=== PATIENT | male | born 1935 | race Caucasian/White ===

== ENCOUNTER 2021-01-09 04:02 | Observation (INO) ==
[2021-01-09] MEDS ORDERED: Melatonin 3 MG TABLET PO PRN ×2 (05:45→13:14)
[2021-01-09] MEDS ORDERED: *HR* HYDROcodone/Acet 5/325 mg TABLET PO PRN ×2 (05:45→13:14)
[2021-01-09] MEDS ORDERED: Acetaminophen 325 MG TABLET PO PRN ×2 (05:45→13:14)
[2021-01-09] MEDS ORDERED: Ondansetron 4 MG/2 ML VIAL IVP PRN ×2 (05:45→13:14)
[2021-01-09] MEDS ORDERED: Naloxone 0.4 MG/ML INJ IVP PRN ×2 (05:45→13:14)
[2021-01-09] MEDS ORDERED: *HR* OxyCODONE Immed Rel 5 MG TABLET PO PRN ×3 (05:45→13:14)
[2021-01-09] MEDS ORDERED: Isovue-300 50ML VIAL ONE (07:47)
[2021-01-09 08:27] LABS: Adenovirus Not Detected (Not Detect); Bordetella Pertussis Not Detected (Not Detect); Chlamydophila pneumoniae Not Detected (Not Detect); Coronavirus 229E Not Detected (Not Detect); Coronavirus HKU1 Not Detected (Not Detect); Coronavirus NL63 Not Detected (Not Detect); Coronavirus OC43 Not Detected (Not Detect); Human Metapneumovirus Not Detected (Not Detect); Human Rhinovirus/Enterovirus Not Detected (Not Detect); Influenza A Subtype 2009 H1 Not Detected (Not Detect); Influenza B Not Detected (Not Detect); Mycoplasma pneumoniae Not Detected (Not Detect); Parainfluenza Virus 1 Not Detected (Not Detect); Parainfluenza Virus 2 Not Detected (Not Detect); Parainfluenza Virus 3 Not Detected (Not Detect); Parainfluenza Virus 4 Not Detected (Not Detect); Respiratory Syncytial Virus Not Detected (Not Detect); SARS-CoV-2 Not Detected (Not Detect)
[2021-01-09] MEDS ORDERED: Aspirin 81 MG TAB.CHEW PO SCH (09:00)
[2021-01-09] MEDS ORDERED: Famotidine 20 MG/2 ML VIAL IVP ONE (09:51)
[2021-01-09] MEDS ORDERED: *HR* Labetalol 20 MG/4 ML SYRINGE IVP PRN (09:51)
[2021-01-09] MEDS ORDERED: *HR* HYDROmorphone 2 MG TABLET PO PRN (09:51)
[2021-01-09] MEDS ORDERED: Acetaminophen IV 1,000 MG/100 ML BAG IVPB ONE (09:51)
[2021-01-09] MEDS ORDERED: *HR* HYDROmorphone (PF) 1 MG/ML SYRINGE IVP PRN (09:51)
[2021-01-09] MEDS ORDERED: cefOXitin 1,000 MG, 0.9 % Sodium Chloride 1,000 ML IR ONE (10:00)
[2021-01-09] MEDS ORDERED: CefOXitin 1,000 MG VIAL ONE (10:09)
[2021-01-09] MEDS ORDERED: *HR* Rocuronium Bromide 50 MG/5 ML VIAL ONE (10:12)
[2021-01-09] MEDS ORDERED: Ondansetron 4 MG/2 ML VIAL ONE (10:12)
[2021-01-09] MEDS ORDERED: *HR* Propofol 200 MG/20 ML VIAL IVP ONE (10:12)
[2021-01-09] MEDS ORDERED: *HR* FentaNYL (PF) 100 MCG/2 ML VIAL ONE (10:12)
[2021-01-09] MEDS ORDERED: *HR* Succinylcholine 200 MG/10 ML VIAL IVP ONE (10:12)
[2021-01-09] MEDS ORDERED: Sugammadex Sodium 200 MG/2 ML VIAL IV ONE (10:12)
[2021-01-09] MEDS ORDERED: Lidocaine -MPF 2% 2 ML VIAL ONE (10:12)
[2021-01-09] MEDS ORDERED: *HR* Midazolam HCl 2 MG/2 ML VIAL ONE (10:12)
[2021-01-09] MEDS ORDERED: Lidocaine HCL 4 ML Topical Solution (Laryng-O-Jet Kit Sterile Pak) TP ONE (10:53)
[2021-01-09] MEDS ORDERED: cefOXitin 2,000 MG in Water for inj. (sterile) 20 ML IVP ONE (11:10)
[2021-01-09] MEDS ORDERED: EPHEDrine 50 MG/ML VIAL ONE (11:10)
[2021-01-10] MEDS ORDERED: *HR* LORazepam 2 MG/ML VIAL IVP ONE (00:10)
[2021-01-10 06:56] VITALS: BP 126/71
[2021-01-10 10:13] LABS: Hematocrit 35.8 % (37.5-50.1); Hemoglobin 11.6 g/dL (12.9-16.9); Mean Corpuscular HGB Conc 32.4 g/dL (31.6-35.5); Mean Corpuscular Hemoglobin 29.8 pg (28.0-33.3); Mean Platelet Volume 9.1 fL (9.4-12.4); Platelet Count 235 K/mcL (140-400); Red Blood Count 3.89 M/mcL (4.19-5.50); Red Cell Distribution Width 13.4 % (11.5-14.5)
[2021-01-10 10:21] LABS: Alanine Aminotransferase 160 Units/L (7-52); Albumin 3.9 g/dL (3.5-5.7); Albumin/Globulin Ratio 1.8 (1.1-2.2); Alkaline Phosphatase 98 Units/L (34-104); Aspartate Amino Transferase 60 Units/L (13-39); BUN/Creatinine Ratio 18 (6-26); Bilirubin,Total 1.2 mg/dL (0.3-1.0); Blood Urea Nitrogen 22 mg/dL (8-23); Calcium 9.3 mg/dL (8.6-10.3); Carbon Dioxide 24 mEq/L (23-29); Chloride 100 mEq/L (98-107); Globulin 2.2 g/dL (2.4-3.5); Glucose 134 mg/dL (70-105); Osmolality,Calculated 281 (280-300); Potassium 3.8 mEq/L (3.5-5.1); Sodium 133 mEq/L (136-145); Total Protein 6.1 g/dL (6.4-8.9); eGFR For African Americans > 60 (> 60); eGFR For Non-African Americans 56 (> 60)
== END 2021-01-10 12:09 | disposition home or self-care (01) ==
LOC: 3BNU → SUATTDRO 05:26
PROVIDERS: ADMIT Internal Medicine; ATTEND Registered Nurse

== ENCOUNTER 2021-06-16 15:54 | Inpatient (IN) ==
[2021-06-16] MEDS ORDERED: Naloxone 0.4 MG/ML INJ IVP PRN (18:18)
[2021-06-16] MEDS: D5% in Lactated Ringers 1,000 ML IVC SCH (18:46)
[2021-06-16 19:40] LABS: Adenovirus F 40/41 PCR Not detected (Not detect); Astrovirus PCR Not detected (Not detect); C.difficile Toxin A/B Gene PCR Not detected (Not detect); Campylobacter by PCR Not detected (Not detect); Cryptosporidium by PCR Not detected (Not detect); Cyclospora cayetanensis PCR Not detected (Not detect); E. coli O157 by PCR Not detected (Not detect); Entamoeba histolytica PCR Not detected (Not detect); Enteroaggregative E.coli(EAEC) Not detected (Not detect); Enteropathogenic E.coli(EPEC) Not detected (Not detect); Enterotoxigenic E.coli (ETEC) Not detected (Not detect); Giardia lamblia PCR Not detected (Not detect); Norovirus GI/GII PCR Not detected (Not detect); Plesiomonas shigelloides PCR Not detected (Not detect); Rotavirus A PCR Not detected (Not detect); Salmonella PCR Not detected (Not detect); Sapovirus PCR Not detected (Not detect); Shig/EnteroinvasiveE coli EIEC Not detected (Not detect); Shigalike tox-prod E coli STEC Not detected (Not detect); Vibrio PCR Not detected (Not detect); Vibrio cholerae PCR Not detected (Not detect); Yersinia enterocolitica PCR Not detected (Not detect)
[2021-06-16] MEDS: Vancomycin Oral Soln 125 MG/2.5 ML UDC PO SCH (20:51)
[2021-06-16] MEDS: Norepinephrine 4 MG/254 ML IV.SOLN IVC SCH (20:51)
[2021-06-16 20:59] LABS: Amorphous Sediment,Urine Few per hpf (None-Few); Bilirubin,Urine Negative (Negative); Blood,Urine Large (Negative); Clarity,Urine Turbid (Clear); Color,Urine Orange (Yellow); Glucose,Urine (UA) Normal (Normal); Ketones,Urine Trace mg/dL (Negative); Leukocyte Esterase,Urine Negative (Negative); Mucus,Urine Few per lpf (None-Few); Nitrite,Urine Negative (Negative); PH,Urine 5.5 pH Units (5.0-8.0); Protein,Urine 70 mg/dL (Neg-Trace); RBC,Urine 30-50 per hpf (0-3); Specific Gravity,Urine 1.028 (1.010-1.025); Squamous Epithelial Cell,Urine Few per hpf (None-Few); Urobilinogen,Urine Normal (Normal); WBC,Urine 15-30 per hpf (0-3)
[2021-06-16] MEDS ORDERED: Vancomycin 500 MG, Sodium Chloride IRRigation 250 ML RC SCH (21:00)
[2021-06-16 21:04] LABS: INR 2.8; Prothrombin Time 31.4 Seconds (9.4-12.1)
[2021-06-17 04:32] LABS: Mean Corpuscular Hemoglobin 27.9 pg (28.0-33.3); Mean Corpuscular Volume 89.8 fL (83.0-100.0); Mean Platelet Volume 9.3 fL (9.4-12.4); Platelet Count 441 K/mcL (140-400); Red Blood Count 3.23 M/mcL (4.19-5.50); Red Cell Distribution Width 13.9 % (11.5-14.5); White Blood Count 10.6 K/mcL (4.3-11.1)
[2021-06-17 04:57] LABS: Alanine Aminotransferase < 3 Units/L (7-52); Albumin 2.7 g/dL (3.5-5.7); Albumin/Globulin Ratio 1.4 (1.1-2.2); Alkaline Phosphatase 67 Units/L (34-104); Aspartate Amino Transferase 107 Units/L (13-39); BUN/Creatinine Ratio 17 (6-26); Bilirubin,Total 0.7 mg/dL (0.3-1.0); Blood Urea Nitrogen 43 mg/dL (8-23); Calcium 7.8 mg/dL (8.6-10.3); Carbon Dioxide 19 mEq/L (23-29); Chloride 113 mEq/L (98-107); Glucose 142 mg/dL (70-105); Osmolality,Calculated 305 (280-300); Potassium 3.7 mEq/L (3.5-5.1); Sodium 141 mEq/L (136-145); Total Protein 4.7 g/dL (6.4-8.9); eGFR For African Americans 29 (> 60); eGFR For Non-African Americans 24 (> 60)
[2021-06-17] MEDS ORDERED: Amiodarone Premix 150 MG/100 ML BAG IVPB ONE (06:21)
[2021-06-17] MEDS ORDERED: Amiodarone Premix 360 MG/200 ML BAG IVC ONE (06:21)
[2021-06-17] MEDS: Amiodarone Premix 150 MG/100 ML BAG IVPB ONE ×2 (06:24→06:53)
[2021-06-17] MEDS: Amiodarone Premix 360 MG/200 ML BAG IVC ONE ×2 (06:24→12:11)
[2021-06-17] MEDS ORDERED: *HR* Heparin 5,000 UNIT/ML VIAL IVP PRN ×4 (06:25→23:11)
[2021-06-17] MEDS ORDERED: *HR* Heparin 5,000 UNIT/ML VIAL IVP ONE (06:25)
[2021-06-17] MEDS ORDERED: Calcium Gluconate 1gm/50mL 1 GM/50 ML BAG IVPB ONE (06:28)
[2021-06-17] MEDS ORDERED: Heparin 25,000UNIT/250ML 1/2NS 25,000 UNIT/250 ML IV.SOLN IVC SCH ×2 (06:30→23:11)
[2021-06-17] MEDS: D5% in Lactated Ringers 1,000 ML IVC SCH (06:50)
[2021-06-17] MEDS ORDERED: Perflutren Lipid Microsphere 1.3 ML in 0.9 % Sodium Chloride 8.7 ML IVP PRN ×2 (07:27→23:11)
[2021-06-17 14:59] LABS: Prothrombin Time 22.3 Seconds (9.4-12.1)
[2021-06-17 15:22] LABS: Heparin anti-factor XA UFH > 2.00 IU/mL (0.30-0.70)
[2021-06-17] MEDS ORDERED: ceFAZolin 2,000 MG in 0.9 % Sodium Chloride 100 ML IVPB SCH (16:00)
[2021-06-17] MEDS: Norepinephrine 4 MG/254 ML IV.SOLN IVC SCH (22:04)
[2021-06-17] MEDS ORDERED: Naloxone 0.4 MG/ML INJ IVP PRN (23:11)
[2021-06-18] MEDS: D5% in Lactated Ringers 1,000 ML IVC SCH ×5 (00:08→23:16)
[2021-06-18] MEDS: Magnesium Oxide 400 MG TABLET PO SCH ×3 (00:09→20:32)
[2021-06-18] MEDS ORDERED: Acetaminophen IV 1,000 MG/100 ML BAG IVPB ONE (01:29)
[2021-06-18 06:12] LABS: Calcium 8.1 mg/dL (8.6-10.3); Potassium 3.7 mEq/L (3.5-5.1)
[2021-06-18] MEDS: ceFAZolin 2,000 MG in 0.9 % Sodium Chloride 100 ML IVPB SCH ×2 (06:26→17:38)
[2021-06-18] MEDS: Aspirin 81 MG TAB.CHEW PO SCH (08:18)
[2021-06-18 08:58] LABS: Magnesium 3.4 mg/dL (1.6-2.6)
[2021-06-18] MEDS ORDERED: Potassium Chloride 40 MEQ, Lidocaine 1% 2 ML in 0.9 % Sodium Chloride 500 ML IVPB ONE (10:00)
[2021-06-18] MEDS: Ondansetron 4 MG/2 ML VIAL IVP PRN ×2 (12:13→23:43)
[2021-06-18] MEDS ORDERED: Naloxone 0.4 MG/ML INJ IVP PRN (17:29)
[2021-06-18] MEDS: *HR* HYDROmorphone (PF) 1 MG/ML SYRINGE IVP PRN ×2 (17:38→23:39)
[2021-06-19] MEDS: ceFAZolin 2,000 MG in 0.9 % Sodium Chloride 100 ML IVPB SCH (04:14)
[2021-06-19 05:13] LABS: Basophils % 0.5 %; Eosinophils # 0.1 K/mcL (0.0-0.6); Eosinophils % 1.7 %; Hematocrit 27.5 % (37.5-50.1); Hemoglobin 8.6 g/dL (12.9-16.9); Immature Granulocytes % 0.6 % (0-4); Lymphocytes # 0.5 K/mcL (0.6-4.6); Lymphocytes % 6.4 %; Mean Corpuscular HGB Conc 31.3 g/dL (31.6-35.5); Mean Corpuscular Hemoglobin 27.7 pg (28.0-33.3); Mean Corpuscular Volume 88.4 fL (83.0-100.0); Mean Platelet Volume 9.6 fL (9.4-12.4); Monocytes # 0.9 K/mcL (0.0-1.3); Monocytes % 11.6 %; Neutrophils # 6.4 K/mcL (1.6-8.9); Platelet Count 413 K/mcL (140-400); Red Blood Count 3.11 M/mcL (4.19-5.50); Red Cell Distribution Width 14.6 % (11.5-14.5); Segmented Neutrophils % 79.2 %; White Blood Count 8.1 K/mcL (4.3-11.1)
[2021-06-19 05:32] LABS: Calcium 8.1 mg/dL (8.6-10.3); Magnesium 3.4 mg/dL (1.6-2.6); Phosphorous 3.6 mg/dL (2.7-4.5); Potassium 3.8 mEq/L (3.5-5.1)
[2021-06-19] MEDS: *HR* HYDROmorphone (PF) 1 MG/ML SYRINGE IVP PRN ×2 (06:06→12:08)
[2021-06-19] MEDS: Ondansetron 4 MG/2 ML VIAL IVP PRN ×2 (06:06→12:08)
[2021-06-19] MEDS: Magnesium Oxide 400 MG TABLET PO SCH (08:14)
[2021-06-19] MEDS: Aspirin 81 MG TAB.CHEW PO SCH (08:14)
[2021-06-19] MEDS ORDERED: D5% in Lactated Ringers 1,000 ML IVC SCH ×2 (08:30→10:42)
[2021-06-19] MEDS ORDERED: cefTRIAXone 1,000 MG in Water for inj. (sterile) 10 ML IVP SCH (12:00)
[2021-06-19] MEDS ORDERED: *HR* HYDROmorphone (PF) 1 MG/ML SYRINGE IVP PRN (15:11)
[2021-06-19] MEDS ORDERED: ceFAZolin 1,000 MG in Water for inj. (sterile) 10 ML IVP SCH (16:00)
[2021-06-19] MEDS ORDERED: MetroNIDAZOLE 500 MG/100 ML 500 MG/100 ML BAG IVPB SCH (16:00)
[2021-06-19] MEDS: *HR* HYDROmorphone (PF) 1 MG/ML SYRINGE IVP SCH ×2 (16:06→19:53)
[2021-06-19] MEDS: *HR* LORazepam 2 MG/ML VIAL IVP PRN (16:07)
[2021-06-19] MEDS: Scopolamine Patch 1.5 MG PATCH.TD72 TD SCH (16:07)
[2021-06-20] MEDS: *HR* HYDROmorphone (PF) 1 MG/ML SYRINGE IVP SCH ×5 (00:04→22:20)
[2021-06-20] MEDS: *HR* LORazepam 2 MG/ML VIAL IVP PRN ×4 (00:24→22:20)
[2021-06-20] MEDS: *HR* HYDROmorphone (PF) 1 MG/ML SYRINGE IVP PRN (15:02)
[2021-06-21] MEDS: *HR* HYDROmorphone (PF) 1 MG/ML SYRINGE IVP PRN ×5 (00:35→22:08)
[2021-06-21] MEDS: *HR* HYDROmorphone (PF) 1 MG/ML SYRINGE IVP SCH ×7 (01:48→23:39)
[2021-06-21] MEDS: *HR* LORazepam 2 MG/ML VIAL IVP PRN ×5 (02:58→22:08)
[2021-06-22] MEDS: *HR* HYDROmorphone (PF) 1 MG/ML SYRINGE IVP PRN ×7 (01:02→22:25)
[2021-06-22] MEDS: *HR* LORazepam 2 MG/ML VIAL IVP PRN ×5 (02:45→22:25)
[2021-06-22] MEDS: *HR* HYDROmorphone (PF) 1 MG/ML SYRINGE IVP SCH ×5 (03:48→20:37)
[2021-06-22] MEDS ORDERED: Haloperidol Lactate 5 MG/ML VIAL IVP PRN (09:56)
[2021-06-22] MEDS ORDERED: Haloperidol Lactate 5 MG/ML VIAL IVP ONE (12:51)
[2021-06-22] MEDS ORDERED: *HR* FentaNYL (PF) 100 MCG/2 ML VIAL IVP ONE (13:53)
[2021-06-22] MEDS: Scopolamine Patch 1.5 MG PATCH.TD72 TD SCH (15:41)
[2021-06-22] MEDS: Haloperidol Lactate 5 MG/ML VIAL IVP SCH ×2 (15:41→20:38)
[2021-06-22] MEDS: Haloperidol Lactate 5 MG/ML VIAL IVP PRN (18:17)
[2021-06-22 20:32] VITALS: TEMP 97.6
[2021-06-23] MEDS: Haloperidol Lactate 5 MG/ML VIAL IVP SCH ×3 (00:21→08:02)
[2021-06-23] MEDS: *HR* HYDROmorphone (PF) 1 MG/ML SYRINGE IVP SCH ×3 (00:21→08:02)
[2021-06-23] MEDS: *HR* HYDROmorphone (PF) 1 MG/ML SYRINGE IVP PRN ×5 (01:50→12:41)
[2021-06-23] MEDS: *HR* LORazepam 2 MG/ML VIAL IVP PRN ×4 (01:50→12:40)
[2021-06-23] MEDS: Haloperidol Lactate 5 MG/ML VIAL IVP PRN ×3 (02:53→12:40)
[2021-06-23 11:17] VITALS: BP 102/56; PULSE 80; O2SAT 89
== END 2021-06-23 14:05 | disposition hospice, inpatient (51) | DRG 871 ==
LOC: ICNU 17:19 → SUATTDRO 17:19 → 2ANU 06-17 21:25
PROVIDERS: ADMIT Internal Medicine; ATTEND Internal Medicine

== ENCOUNTER 2021-06-23 13:03 | Inpatient (IN) ==
[2021-06-23] MEDS ORDERED: Bisacodyl 10 MG RECTAL SUPPOSITORY RC PRN (14:51)
[2021-06-23] MEDS ORDERED: Atropine 1% Opth Drops 100 DROP/5 ML BOTTLE SL PRN (14:51)
[2021-06-23] MEDS: *HR* LORazepam Oral Conc 2 MG/ML PO PRN ×4 (15:23→23:37)
[2021-06-23] MEDS: Haloperidol Oral Conc 10 MG/5 ML UDC PO PRN ×2 (15:23→18:40)
[2021-06-23] MEDS: Scopolamine Patch 1.5 MG PATCH.TD72 TD SCH (15:23)
[2021-06-23] MEDS: *HR* HYDROmorphone (PF) 1 MG/ML SYRINGE IVP PRN ×4 (15:24→23:37)
[2021-06-24] MEDS: *HR* LORazepam Oral Conc 2 MG/ML PO PRN ×7 (02:56→18:32)
[2021-06-24] MEDS: *HR* HYDROmorphone (PF) 1 MG/ML SYRINGE IVP PRN ×7 (02:56→18:32)
[2021-06-24] MEDS: Haloperidol Oral Conc 10 MG/5 ML UDC PO PRN ×2 (09:25→11:26)
[2021-06-24] MEDS: Haloperidol Lactate 5 MG/ML VIAL IVP PRN ×3 (14:10→18:32)
[2021-06-25] MEDS: *HR* HYDROmorphone (PF) 1 MG/ML SYRINGE IVP PRN ×2 (00:05→03:41)
[2021-06-25] MEDS: *HR* LORazepam Oral Conc 2 MG/ML PO PRN ×3 (00:06→13:50)
[2021-06-25] MEDS: Haloperidol Lactate 5 MG/ML VIAL IVP SCH ×8 (10:24→23:51)
[2021-06-25] MEDS: *HR* HYDROmorphone (PF) 1 MG/ML SYRINGE IVP SCH ×7 (10:25→23:51)
[2021-06-25] MEDS: *HR* LORazepam 2 MG/ML VIAL IVP SCH ×5 (16:03→23:51)
[2021-06-26] MEDS: *HR* HYDROmorphone (PF) 1 MG/ML SYRINGE IVP PRN ×3 (01:00→13:23)
[2021-06-26] MEDS: Haloperidol Lactate 5 MG/ML VIAL IVP SCH ×10 (02:17→18:08)
[2021-06-26] MEDS: *HR* LORazepam 2 MG/ML VIAL IVP SCH ×9 (02:17→18:06)
[2021-06-26] MEDS: *HR* HYDROmorphone (PF) 1 MG/ML SYRINGE IVP SCH ×9 (02:18→18:07)
[2021-06-26] MEDS: Haloperidol Lactate 5 MG/ML VIAL IVP PRN ×3 (04:05→09:02)
[2021-06-26 07:55] VITALS: BP 88/55; PULSE 101; TEMP 98.6; O2SAT 88
[2021-06-26] MEDS: Scopolamine Patch 1.5 MG PATCH.TD72 TD SCH (14:10)
== END 2021-06-26 19:40 | disposition expired | DRG 951 ==
LOC: 2ANU 14:09
PROVIDERS: ADMIT Internal Medicine Hospice and Palliative Medicine; ATTEND Internal Medicine Hospice and Palliative Medicine